=== PATIENT | male | born 1975 | race Hispanic/Latino ===

== ENCOUNTER 2023-09-01 23:39 | Emergency (ER) | payer BC, SELFPAY ==
[2023-09-01 23:47] VITALS: BP 160/86
--- NOTE | 2023-09-02 00:16 | ED.GENMED ---
History of Present Illness
<GORAN Jurado - Last Filed: 09/02/23 00:21>
General
Chief Complaint: Abdominal Pain
Source: patient
Exam Limitations: none
Time Seen by Provider: 09/02/23 00:04
Nursing documentation reviewed up to this point in time: agreed with
Travel History
Have you had any contact with someone who has COVID-19?: No
Do you have any symptoms of coronavirus? Fever > 100 degrees, chills, cough, shortness of breath, sore throat, loss of taste or smell, muscle aches, or headache?: No
History of Present Illness
History of Present Illness:
patient is a 47 y/o male presenting with cough since 8 am yesterday. Patient states he has had a non productive cough that started yesterday morning. Patient states around 3-4 pm he started to have lateral right sided chest pain. Patient states the
lateral pain radiates to his shoulder and started as more of an ache but has become more sharp. Patient admits to associated chills. Patient denies N/V/D/C, abdominal pain, CP, SOB, sore throat, congestion. Patient admits to a recent sick contact 1
week ago with similar symptoms. Patient denies recent travel change in diet or medications. Patient denies taking any medications at home.
Past History
<GORAN Jurado - Last Filed: 09/02/23 00:21>
Past History
ED Past Medical History: None
ED Past Surgical History: None
Social History
Tobacco: Non-smoker
Alcohol: None
Review of Systems
<GORAN Jurado - Last Filed: 09/02/23 00:21>
Review of Systems
All Other Systems: Not applicable
Constitutional: Reports chills
EENT: Reports no symptoms
Respiratory: Reports cough
Cardiac: Reports chest pain (lateral right chest pain)
ABD/GI: Reports no symptoms
: Reports no symptoms
Musculoskeletal: Reports no symptoms
Skin: Reports no symptoms
Neurological: Reports no symptoms
Endocrine: Reports no symptoms
Hematologic/Lymphatic: Reports no symptoms
Psychiatric: Reports no symptoms
Phy Exam
<GORAN Jurado - Last Filed: 09/02/23 00:21>
General Physical Exam
General Presentation: well appearing and no apparent distress
General Skin: warm and dry
General Habitus: normal
General Mental: alert
General Hydration: appears well hydrated
ENT Exam
ENT Exam: EOMI, pharynx normal, neck supple and normocephalic
Eye Exam
Eye Exam: PERRL, cornea clear and conjunctiva normal
Cardiovascular Exam
Cardiovascular Exam: other (tenderness to palpation of lateral right chest)
Pulmonary Exam
Pulmonary Exam: lungs clear, no respiratory distress, no rales, no crackles, no rhonchi, no stridor, no wheezing and no cough
Gastrointestinal Exam
Gastrointestinal Exam: normal bowel sounds, non tender, soft, no organomegaly, no pulsatile mass and non distended
Neurological Exam
Neurological Exam: alert, oriented x3, no motor deficits and speech normal
Musculoskeletal Exam
Musculoskeletal Exam: full ROM and no edema
Skin Exam
Skin Exam: normal color, warm/dry, no rash and no petechia
Psychiatric Exam
Psychiatric Exam: normal mood/affect
Course
<GORAN Jurado - Last Filed: 09/02/23 00:21>
Orders/Labs/Results
Orders:
Orders
09/02/23 00:34
Acetaminophen [Tylenol] 1,000 mg PO NOW STA
CR Chest - 2 Views Urgent
Comment:
Reason For Exam: cough chills
09/02/23 00:41
COVID-19 Antigen Urgent
Source: Nasal Swab
Influenza A+B Rapid Molecular Urgent
BRANDON Source: Nasal Swab
Specimen Description:
09/02/23 00:52
Ibuprofen [Motrin] 600 mg PO NOW STA
Vital Signs
Initial and Last Documented VS:
Initial Vital Signs
Temp Pulse Resp BP Pulse Ox
98.4 F 70 18 160/86 97
09/01/23 23:47 09/01/23 23:47 09/01/23 23:47 09/01/23 23:47 09/01/23 23:47
Last Documented Vital Signs
Temp Pulse Resp BP Pulse Ox
98.4 F 70 18 160/86 98
09/01/23 23:47 09/01/23 23:47 09/01/23 23:47 09/01/23 23:47 09/02/23 01:15
<Jarvis Reagan, DO - Last Filed: 09/02/23 02:17>
Orders/Labs/Results
Orders:
Orders
09/02/23 00:34
Acetaminophen [Tylenol] 1,000 mg PO NOW STA
CR Chest - 2 Views Urgent
Comment:
Reason For Exam: cough chills
09/02/23 00:41
COVID-19 Antigen Urgent
Source: Nasal Swab
Influenza A+B Rapid Molecular Urgent
BRANDON Source: Nasal Swab
Specimen Description:
09/02/23 00:52
Ibuprofen [Motrin] 600 mg PO NOW STA
Vital Signs
Initial and Last Documented VS:
Initial Vital Signs
Temp Pulse Resp BP Pulse Ox
98.4 F 70 18 160/86 97
09/01/23 23:47 09/01/23 23:47 09/01/23 23:47 09/01/23 23:47 09/01/23 23:47
Last Documented Vital Signs
Temp Pulse Resp BP Pulse Ox
98.4 F 70 18 160/86 98
09/01/23 23:47 09/01/23 23:47 09/01/23 23:47 09/01/23 23:47 09/02/23 01:15
<GORAN Jurado - Last Filed: 09/02/23 00:21>
MDM/Problems Addressed
Differential Diagnosis Includes:
influenza
viral URI
costochondritis
MDM/Problems Addressed:
cough and chest pain
<GORAN Jurado - Last Filed: 09/02/23 00:21>
*Critical Care Note
Total Time (30-74mins, 75-104mins- exclusive of procedures): Not Applicable
<Jarvis Reagan DO - Last Filed: 09/02/23 02:17>
*Radiology
Radiology exam reviewed: preliminary read by ED provider
*Pulse Oximetry
Patient hypoxic: no
<Jarvis Reagan DO - Last Filed: 09/02/23 02:17>
Update Note
Update Note:
1:40 AM chest x-ray noted viral swabs noted
2:15 AM patient feeling better
ED Attending Note
<GORAN Jurado - Last Filed: 09/02/23 00:21>
-
Portions of this chart may have been created with voice recognition software.� Occasional wrong word or��sound alike� substitutions may have occurred due to the inherent limitations of voice recognition software.
<Jarvis Reagan DO - Last Filed: 09/02/23 02:17>
ED Attending Note
Patient seen and examined by attending physician: Yes
I performed the substantive portion of visit, reviewed & personally made and approve the management plan that is documented in note by myself or LUIS.: Yes
ED Attending Note:
Seen with student examined independently 47-year-old male limited past medical history nondrinker non-smoker with a episode of cough congestion chills sharp pain in the right chest after coughing and sneezing triage note states he has a pain in his
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
Will start Tylenol Motrin check viral swabs chest x-ray
Discharge Plan
Departure
Patient Disposition: Home (Routine Discharge)
Date of Disposition: 09/02/23
Time of Disposition: 02:15
Patient with high blood pressure during this ER visit?: No
Condition: Good
Discharge Problem:
Cough, URI (upper respiratory infection)
Instructions: Ibuprofen, Muscle and Bone Pain (DC)
Prescriptions:
New
ibuprofen 800 mg tablet
800 mg PO Q6H PRN (Reason: Pain/fever) Qty: 20 0RF
Referrals:
Nehemiah Blackwood MD [Family Provider] - Next open appointment
Activity Restrictions/Additional Instructions:
Drink plenty of fluids ibuprofen or Tylenol for body aches or fever follow-up with your family doctor return to the ER for worsening symptoms
Interventions
Interventions:
*Risk Screen - Suicide Last Done: 09/01/23 23:47
*Neglect/Abuse Screening Last Done: 09/01/23 23:47
ED- Fall Risk Assessment Last Done: 09/02/23 00:49
LC-Ryetpq-Wfxnfpaofy Assessment Last Done: 09/02/23 00:49
ED-Musculoskeletal Assessment Last Done: 09/02/23 00:49
Discharge Date and Time
Print Language: FRISIAN
[2023-09-02] MEDS: TYLENOL 1000 MG PO (00:42)
[2023-09-02 00:45] VITALS: BMI 28.4
[2023-09-02] MEDS: MOTRIN 600 MG PO (00:57)
[2023-09-02 01:20] LABS: COVID-19 Antigen Negative (Negative)
[2023-09-02 02:26] VITALS: BP 129/73
== END 2023-09-02 02:30 | disposition home or self-care (01) ==
LOC: EMR 23:39
PROVIDERS: EMERGENCY PHYSICIAN Emergency Medicine; FAMILY PHYSICIAN Family Medicine
DX: R05.9 Cough, unspecified (principal); J06.9 Acute upper respiratory infection, unspecified
CPT/HCPCS: 99283; 71046; 87502; 87811

== ENCOUNTER 2023-10-21 14:28 | Emergency (ER) | payer BC, SELFPAY ==
[2023-10-21 14:40] VITALS: BP 140/83
--- NOTE | 2023-10-21 15:11 | ED.GENMED ---
History of Present Illness
General
Chief Complaint: Fall
Source: patient
Exam Limitations: none
Time Seen by Provider: 10/21/23 14:57
Nursing documentation reviewed up to this point in time: agreed with
Travel History
Have you had any contact with someone who has COVID-19?: No
Do you have any symptoms of coronavirus? Fever > 100 degrees, chills, cough, shortness of breath, sore throat, loss of taste or smell, muscle aches, or headache?: No
History of Present Illness
History of Present Illness:
Patient is a 48-year-old male who presents to the ER for evaluation after injury. Patient was working prior to arrival outside standing 4 feet and scaffolding fell off and hit his chest on a Wheelbarrow. He denies any head denies any other
injuries. He did not hit head. Denies any neck pain. He denies any shortness of breath. He does have pain with movement to anterior chest.
He denies any abdominal pain nausea vomiting back pain.
He is not on blood thinners. He does not smoke.
Past History
Past History
ED Past Medical History: None
ED Past Surgical History: None
Social History
Tobacco: Non-smoker
Alcohol: None
Phy Exam
General Physical Exam
General Presentation: no apparent distress
General age: appears stated age
General Skin: warm and dry
General Habitus: normal
General Mental: alert
General Hydration: other
Cardiovascular Exam
Cardiovascular Exam: regular rate/rhythm, no murmur and normal peripheral pulses
Pulmonary Exam
Pulmonary Exam: lungs clear, no respiratory distress and other (+ tenderness to anterior chest with horizontal abrasion across anterior chest no crepitus )
Neurological Exam
Neurological Exam: alert and oriented x3
Musculoskeletal Exam
Musculoskeletal Exam: full ROM
Course
Orders/Labs/Results
Orders:
Orders
10/21/23 14:45
Ribs, Gómez 4 View W/PA Chest [CR Ribs-gómez 4 Vw W/pa Chest] Urgent
Comment:
Reason For Exam: pain after a 4' fall onto a wheelbarrow
10/21/23 15:19
CT Chest With Iv Contrast Urgent
Comment:
Reason For Exam: trauma
IV Insert/Care/Rem.- Treatment PRN
10/21/23 15:38
Complete Blood Count/With Diff Urgent
Comprehensive Metabolic Panel Urgent
Abnormal Lab Results
10/21/23
15:38
RBC 4.63 L 10^6/uL
(4.70-6.10)
MCH 31.5 H pg
(27.0-31.0)
Absolute Neuts (auto) 7.6 H 10^3/uL
(1.4-6.5)
Lymphocytes % 18.2 L %
(20.5-51.1)
Chloride 109 H mmol/L
(98-107)
Glucose 113 H mg/dl
(70-99)
10/21/23 15:38
10/21/23 15:38
Vital Signs
Initial and Last Documented VS:
Initial Vital Signs
Temp Pulse Resp BP Pulse Ox
97.5 F 78 16 140/83 97
10/21/23 14:40 10/21/23 14:40 10/21/23 14:40 10/21/23 14:40 10/21/23 14:40
Last Documented Vital Signs
Temp Pulse Resp BP Pulse Ox
97.5 F 78 16 140/83 97
10/21/23 14:40 10/21/23 14:40 10/21/23 14:40 10/21/23 14:40 10/21/23 14:40
MDM/Problems Addressed
Differential Diagnosis Includes:
Not limited to contusion versus dural fracture versus rib fracture
MDM/Problems Addressed:
Patient is a 48-year-old male who fell off a 4 feet of scaffolding and hit a wheelbarrow with his front chest. Patient with abrasion to the chest no crepitus lungs are clear not hypoxic however due to tenderness and trauma CAT scan ordered and
negative for acute injury. Tetanus updated
*Radiology
Radiology exam reviewed: radiology read reviewed
*Pulse Oximetry
Patient hypoxic: no
*Critical Care Note
Total Time (30-74mins, 75-104mins- exclusive of procedures): Not Applicable
ED Attending Note
-
Portions of this chart may have been created with voice recognition software.� Occasional wrong word or��sound alike� substitutions may have occurred due to the inherent limitations of voice recognition software.
Discharge Plan
Departure
Patient Disposition: Home (Routine Discharge)
Date of Disposition: 10/21/23
Time of Disposition: 18:55
Patient with high blood pressure during this ER visit?: Yes
Covid-19: Not Applicable
Discharge Problem:
Chest wall contusion, Abrasion
Instructions: Contusion (DC), Skin Abrasions (DC), BLOOD PRESSURE
Prescriptions:
No Action
ibuprofen 800 mg tablet
800 mg PO Q6H PRN (Reason: Pain/fever) Qty: 20 0RF
Referrals:
UNKNOWN - PT DOES,NOT KNOW [Family Provider] -
Stand Alone Forms: Return to Work
Activity Restrictions/Additional Instructions:
Wash abrasion with soap and water twice daily. You may alternate between ibuprofen and Tylenol. Follow-up with your family doctor/work health in the next several days and return if any worsening of symptoms.
Interventions
Interventions:
ED-Musculoskeletal Assessment Last Done: 10/21/23 16:12
ED- Neurological Assessment Last Done: 10/21/23 16:12
ED-Skin Assessment Last Done: 10/21/23 16:13
Discharge Date and Time
Print Language: AMHARIC
[2023-10-21 15:47] LABS: % Basophils 0.5 % (0-2); % Eosinophils 1.8 % (0-6); % Immature Granulocytes 0.3 % (0-0.5); % Lymphocytes 18.2 % (20.5-51.1); % Monocytes 6.2 % (1.7-9.3); Absolute Basophils 0.1 10^3/uL (0-0.2); Absolute Eosinophils 0.2 10^3/uL (0-0.7); Absolute Lymphocytes 1.9 10^3/uL (1.2-3.4); Absolute Monocytes 0.6 10^3/uL (0.1-0.6); Absolute Neutrophils 7.6 10^3/uL (1.4-6.5); Hematocrit 40.1 % (39.0-52.0); Hemoglobin 14.6 g/dL (13.0-18.0); Mean Corp Hgb Conc. 36.4 g/dL (33.0-37.0); Mean Corpuscular Hgb 31.5 pg (27.0-31.0); Mean Corpuscular Volume 86.6 fL (80.0-94.0); Nucleated Red Blood Cells % 0 % (-); Platelet Count 246 10^3/uL (130-400); Red Blood Cell Count 4.63 10^6/uL (4.70-6.10); Red Cell Dist. Width 12.5 % (11.5-14.5); White Blood Cell Count 10.4 10^3/uL (4.8-10.8)
[2023-10-21 16:01] LABS: ALT (SGPT) 26 U/L (0-50); AST (SGOT) 28 U/L (17-59); Albumin 4.2 g/dl (3.5-5.0); Alkaline Phosphatase 73 U/L (38-126); Blood Urea Nitrogen 15 mg/dl (9-20); Calcium 9.2 mg/dl (8.4-10.2); Carbon Dioxide 23 mmol/L (22-30); Chloride 109 mmol/L (98-107); Glucose 113 mg/dl (70-99); Potassium 3.9 mmol/L (3.5-5.1); Total Bilirubin 0.6 mg/dl (0.2-1.3); Total Protein 6.9 g/dl (6.3-8.2); eGFR > 60.00
[2023-10-21 16:36] LABS: Sodium 140 mmol/L (135-145)
[2023-10-21] MEDS: ADACEL 0.5 ML IM (19:03)
[2023-10-21 19:14] VITALS: BP 133/78
== END 2023-10-21 19:16 | disposition home or self-care (01) ==
LOC: EMR 14:28
PROVIDERS: Nurse Practitioner; EMERGENCY PHYSICIAN Emergency Medicine
DX: S20.219A Contusion of unspecified front wall of thorax, initial encounter (principal); S20.319A Abrasion of unspecified front wall of thorax, initial encounter; W12.XXXA Fall on and from scaffolding, initial encounter; Z86.16 Personal history of COVID-19
CPT/HCPCS: 99285; 90471; 71111; 71260; 80053; 85025; 90715; Q9967